=== PATIENT | male | born 1950 | race Caucasian/White ===

== ENCOUNTER 2021-06-18 09:15 | Outpatient (CLI) | payer MEDICARE, OTHER, SELFPAY ==
--- NOTE | ~2021-06-18 | XR_ITS ---
EXAMINATION: XR hip LT min 2V DATE: 06/18/2021 09:52 INDICATION: Chronic left hip pain. TECHNIQUE: 2 views of left hip were obtained. COMPARISON: None. FINDINGS: Bone alignment is normal. No fracture. There is mild left hip osteoarthritis. IMPRESSION: 1. Mild left hip osteoarthritis. Reviewed, dictated and finalized at location A.
== END 2021-06-18 09:16 | disposition home or self-care (01) ==
PROVIDERS: PCP Family Medicine; Visit Provider Nurse Practitioner Adult Health
DX: M16.12 Unilateral primary osteoarthritis, left hip (principal)
CPT/HCPCS: 73502

== ENCOUNTER 2022-02-01 10:38 | Outpatient (CLI) | payer MEDICARE, OTHER, SELFPAY ==
--- NOTE | ~2022-02-01 | XR_ITS ---
EXAMINATION: XR chest 2V DATE: 02/01/2022 11:03 INDICATION: Prior tuberculosis presenting with pneumonia with 2 weeks of cough. TECHNIQUE: PA and lateral views of the chest were obtained. COMPARISON: Chest radiograph dated 05/23/2014 FINDINGS: Small calcified pleural plaque at the lateral right apex. Chronic elevation of the left hemidiaphragm with mild streaky atelectasis/scarring the left lower lung zone. Nodular opacity projecting over the inferior margin of the anterior right fifth rib most likely representing a nipple shadow. No other a irspace opacities, pulmonary edema, pleural effusion or pneumothorax. The cardiomediastinal silhouett e is normal. Multiple old left-sided rib fractures. Chronic type V acromioclavicular joint separation . Chronic asymmetry to the sternoclavicular joints also likely related to old trauma with old fractur e deformity seen on prior CT at the [facility]. IMPRESSION: 1. Unchanged elevation of left hemidiaphragm with chronic atelectasis/scarring the left lower lung zo ne. Reviewed, dictated and finalized at location A. 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 Unchanged elevation of left hemidiaphragm with chronic atelectasis/scarring the left lower lung zone.
== END 2022-02-01 10:39 | disposition home or self-care (01) ==
PROVIDERS: PCP Family Medicine
DX: J18.9 Pneumonia, unspecified organism (principal); Z86.11 Personal history of tuberculosis; R91.8 Other nonspecific abnormal finding of lung field
CPT/HCPCS: 71046

== ENCOUNTER 2022-07-09 13:33 | Emergency (ER) | payer MEDICARE, OTHER, SELFPAY ==
--- NOTE | ~2022-07-09 | CT_ITS ---
EXAMINATION: CT brain wo con DATE: 07/09/2022 15:41 INDICATION: fall . TECHNIQUE: Computed tomography (CT) of the head was performed without intravenous contrast. The mA wa s adjusted according to patient size. Iterative reconstruction technique was employed. The dose-lengt h product was 605.33 mGy-cm. COMPARISON: None. FINDINGS: No acute intracranial hemorrhage or extra-axial fluid collection. No hydrocephalus, mass, or herniation. No acute ischemic infarct. Unremarkable dural venous sinus attenuation. No acute osseous abnormality. The aerated spaces are clear. Moderate atrophy and mild chronic white matter change. Atherosclerotic intracranial calcification. Mi nimal bilateral nasal ganglia calcification. IMPRESSION: No acute intracranial process. Reviewed, dictated and finalized at location K.
--- NOTE | ~2022-07-09 | CT_ITS ---
EXAMINATION: CT cervical spine wo con DATE: 07/09/2022 15:42 INDICATION: fall TECHNIQUE: Computed tomography (CT) of the cervical spine was performed without intravenous contrast. Automated exposure control and iterative reconstruction technique were employed. The dose-length pro duct was 235.61 mGy-cm. COMPARISON: None. FINDINGS: Vertebral Body Alignment: Intact. Mildly reversed lordosis centered at C5-6. Craniocervical and atlantoaxial alignment: Severe degenerative change. Alignment intact. Osseous structures/fracture: No evidence of a lytic or blastic process in the visualized spine. No e vidence of acute fracture. . Cervical soft tissues: The paraspinal soft tissues planes are maintained. Tracheostomy. Prior left th yroid ectomy. Degenerative changes: Degenerative changes, without severe neural foraminal or central canal narrowin g. IMPRESSION: No acute fracture or traumatic malalignment in the cervical spine. Reviewed, dictated and finalized at location K.
--- NOTE | ~2022-07-09 | XR_ITS ---
EXAM: XR shoulder LT min 2V DATE: 07/09/2022 15:44 HISTORY: Fall off ladder x today. Left shoulder pain . COMPARISON: None available. FINDINGS: Decreased mineralization. Comminuted fracture of the left humeral head, with involvement o f portions of the greater tuberosity. Significant superior displacement of the distal clavicle relati ve to the acromion and coracoid. No lytic or blastic lesion. Joint spaces are maintained. No erosion or periosteal change. Soft tissues within normal limits. IMPRESSION: Comminuted left humeral head fracture with involvement of the greater tuberosity. High-gr leanne AC separation. Reviewed, dictated and finalized at location K. IMPRESSION: Comminuted left humeral head fracture with involvement of the great er tuberosity. High-grade AC separation.
[2022-07-09 13:35] VITALS: BP 142/72; PULSE 55; RESP 18; TEMP 36.2; O2SAT 100
[2022-07-09 14:30] VITALS: BP 144/80; PULSE 68; RESP 16; O2SAT 98
--- NOTE | 2022-07-09 14:34 | ED.GENADULT ---
HPI - General Adult General Chief complaint: Fall Stated complaint: fall with left shoulder pain Time Seen by Provider: 07/09/22 14:12 History of Present Illness HPI narrative: Burke Arrington is a 72 y/o male who presents today with his . Patient reports he was on a ladder when he lost his footing and fell about 7 feet. He fell on to his left side of his body, with his left shoulder getting most of the blunt of the fall. He did hit the left side of his head with an abrasion to his left ear. He denies LOC, denies pain anywhere other then to his left shoulder. Patient did not want to come here, but encouraged him to come. Related Data Home Medications Medication Instructions Recorded Confirmed cholecalciferol (vitamin D3) 25 25 mcg PO DAILY 04/28/22 04/28/22 mcg (1,000 unit) capsule finasteride 5 mg tablet 5 mg PO 04/28/22 04/28/22 midodrine 10 mg tablet 10 mg PO TID 04/28/22 04/28/22 simvastatin 5 mg tablet 5 mg PO 04/28/22 04/28/22 Allergies Allergy/AdvReac Type Severity Reaction Status Date / Time meperidine [From Demerol] Allergy Unknown Unknown Verified 07/09/22 13:34 Review of Systems Review of Systems: CONSTITUTIONAL: Denies fever, chills, or sweats. EYES: Denies visual changes, redness, or discharge. ENT: Denies rhinorrhea, congestion, sore throat, or otalgia. CARDIOVASCULAR: Denies chest pain, palpitations, or edema. RESPIRATORY: Denies cough or dyspnea. GASTROINTESTINAL: Denies abdominal pain, nausea, vomiting, or diarrhea. GENITOURINARY: Denies dysuria or hematuria. SKIN: Denies rash or itching. MUSCULOSKELETAL: Complains of pain to the left shoulder with swelling noted. NEUROLOGIC: Denies headache, numbness, dizziness, or weakness. PSYCHIATRIC: Denies anxiety or depression. [facility] Past Medical History Medical History Arthritis Headache Hypotension Thyroid disorder Family History Family History Father Alcoholism Hypertension Heart disease Mother Alcoholism Hypertension Depression Social History Social History Smoking status: Never smoker Alcohol intake: never Substance use: never Lack of Transportation: No Lack of Food: Never True Current Housing: I Have Housing Concerned About Future Housing: No Difficulty Paying Gas/Electric Bills: No Difficulty Paying for Meds: No Currently Unemployed: No Education: High School Diploma/GED Difficulty w/ Childcare or Family Care: No Exam Narrative: GENERAL: Well-appearing, well-nourished, and in no acute distress. HEAD: Normocephalic, atraumatic. EYES: PERRLA and EOMI. ENT: Nares clear, no rhinorrhea or epistaxis. Mucous membranes moist. Oropharynx without tonsillar hypertrophy exudate or other lesions. Bilateral TMs pearly snow nonbulging NECK: Supple. No adenopathy or masses. No carotid bruits or JVD CHEST: Clear to auscultation. No respiratory distress. No wheezes rales or rhonchi HEART: Regular rate and rhythm. No murmur heard. Normal peripheral pulses. ABDOMEN: Soft, nontender, nondistended, normal active bowel sounds. EXTREMITIES: Moderate swelling noted to left shoulder, distal pulses present ecchymosis noted. SKIN: Warm, dry, no rash. NEURO: No focal deficits. Alert and oriented x3. PSYCH: Normal mood and affect. Course Vital Signs Vital signs: Vital Signs Temperature 36.2 C L 07/09/22 13:35 Pulse Rate 55 L 07/09/22 13:35 Respiratory Rate 18 07/09/22 13:35 Blood Pressure 142/72 H 07/09/22 13:35 Pulse Oximetry 100 07/09/22 13:35 Oxygen Delivery Room Air 07/09/22 13:35 Temperature 36.7 C 07/09/22 17:25 Pulse Rate 68 07/09/22 17:25 Respiratory Rate 16 07/09/22 17:25 Blood Pressure 144/78 H 07/09/22 17:25 Pulse Oximetry 98 07/09/22 17:25 Oxygen Delivery Room Air 07/09/22 13:35 Med
[2022-07-09] MEDS: CYCLOBENZAPRINE HCL 10 MG TABLET PO (14:46)
[2022-07-09] MEDS: KETOROLAC 30 MG/ML VIAL (*BKC) IV PUSH (14:47)
--- NOTE | 2022-07-09 14:47 | PC.NURSE ---
pt refused SLN med given IM, ERP notified
--- NOTE | 2022-07-09 14:50 | PC.NURSE ---
when taking cyclobenzaprine 1st dose dropped on floor, wasted in pyxis and new dose removed
[2022-07-09 15:30] VITALS: BP 142/78; PULSE 70; RESP 16; O2SAT 99
--- NOTE | 2022-07-09 16:21 | PC.NURSE ---
patient refusing lab draw at this time. provider and primary nurse aware
[2022-07-09 16:30] VITALS: BP 142/90; PULSE 72; RESP 16; O2SAT 99
[2022-07-09 17:25] VITALS: BP 144/78; PULSE 68; RESP 16; TEMP 36.7; O2SAT 98
== END 2022-07-09 17:54 | disposition home or self-care (01) ==
PROVIDERS: Emergency Provider Nurse Practitioner Family; PCP Family Medicine
DX: S42.295A Other nondisplaced fracture of upper end of left humerus, initial encounter for closed fracture (principal); S42.255A Nondisplaced fracture of greater tuberosity of left humerus, initial encounter for closed fracture; E07.9 Disorder of thyroid, unspecified; M19.90 Unspecified osteoarthritis, unspecified site; W11.XXXA Fall on and from ladder, initial encounter
CPT/HCPCS: 70450; 72125; 73030; 96374; 99284; A9270; J1885

== ENCOUNTER 2023-09-04 13:12 | Outpatient (CLI) | payer MEDICARE, OTHER, SELFPAY ==
--- NOTE | ~2023-09-04 | XR_ITS ---
Clinical Indication: Shortness of breath PA and lateral views of the chest: Comparison: 02/01/2022 Findings: The lungs are clear, without evidence of focal consolidation or pleural effusion. Bibasilar nipple shadows noted. Cardiomediastinal silhouette is within normal limits. Bones and soft tissues a re unremarkable. Impression: Normal chest. Reviewed, dictated and finalized at location . Impression: Normal chest.
== END 2023-09-04 13:13 | disposition home or self-care (01) ==
PROVIDERS: PCP Family Medicine; Visit Provider Registered Nurse
DX: R06.02 Shortness of breath (principal); Z86.11 Personal history of tuberculosis
CPT/HCPCS: 71046

== ENCOUNTER 2023-10-27 07:12 | Outpatient (CLI) | payer MEDICARE, OTHER, SELFPAY ==
--- NOTE | ~2023-10-27 | NM_ITS ---
EXAMINATION: NM chantel stress w perfusion DATE: 10/27/2023 12:31 INDICATION: Other forms of dyspnea TECHNIQUE: Rest images were obtained following intravenous administration of 10.2 mCi Tc99m tetrofosm in (Myoview). The patient was infused intravenously with Lexiscan (Regadenoson). Then, 32 mCi Tc99m t etrofosmin (Myoview) was administered intravenously, and stress images were obtained in supine positi on. Additional repeat post stress images were obtained in the prone position. Data was reconstructed into short axis and horizontal and vertical long axis SPECT images. Gated SPECT images were also obta ined. COMPARISON: None. FINDINGS: There is likely attenuation artifact along the lateral wall which is significantly more pro minent on the rest than the stress images which normalizes on the post stress images obtained in the prone position. There is no definite reversible or fixed perfusion abnormality to suggest ischemia or infarction. There is normal left ventricular chamber size, wall motion and ejection fraction. Left ventricular ejection fraction measures 57%. IMPRESSION: 1. Normal myocardial perfusion at rest and during stress. 2. Left ventricular ejection fraction measuring 57%. Reviewed, dictated and finalized at location A.
--- NOTE | 2023-10-27 07:31 | ECHO_ITS ---
Patient Info Name: Burke Arrington Age: 73 years : 1950 Gender: Male Ht: 67 in Wt: 146 lbs BSA: 1.77 m2 HR: 71 bpm BP: 139 / 83 mmHg Technical Quality: Good Exam Date: 10/27/2023 8:04 AM Exam Location: Echo Lab Patient Status: Outpatient Admit Date: 10/27/2023 Staff Ordering Physician: Wing Hancock DO Grinder Set Up Operator Universal: Ambar Laureano RDCS Attending Provider: Wing Hancock DO Referring Physician: Santi WELCH; Exam Type: CA echo doppler color flow Study Info Indications R06.09 - Other forms of dyspnea Complete two-dimensional, color flow and Doppler transthoracic echocardiogram is performed. Strain analysis performed. Summary 1. Complete two-dimensional, color flow and Doppler transthoracic echocardiogram is performed. 2. Left ventricular chamber dimension is normal. 3. Left ventricular systolic function is normal, estimated at 60-65%. 4. There is severe asymmetric septal increased left ventricular wall thickness. 5. The left ventricular diastolic function is abnormal. 6. E/e' 11 is mildly elevated. 7. Global longitudinal strain is abnormal at -15.6%. 8. There is moderate aortic valve sclerosis. 9. There is mild aortic valve regurgitation. 10. Mildly calcified chordae tendinae of anterior mitral leaflet. 11. There is mild mitral valve regurgitation. 12. There is trace tricuspid valve regurgitation. 13. No pulmonary hypertension, estimated pulmonary arterial systolic pressure is 27 mmHg. Left Ventricle E/e' 11 is mildly elevated. Global longitudinal strain is abnormal at -15.6%. Left ventricular chamber dimension is normal. Left ventricular systolic function is normal, estimated at 60-65%. There is severe asymmetric septal increased left ventricular wall thickness. The left ventricular diastolic function is abnormal. Right Ventricle Right ventricular systolic function is normal and with normal TAPSE 2.7 cm. Right ventricular chamber dimension is normal. Left Atria Left atrial chamber dimension is normal. Right Atria Right atrial chamber dimension is normal. Aortic Valve The aortic valve is trileaflet. There is moderate aortic valve sclerosis. There is no aortic valve stenosis. There is mild aortic valve regurgitation. Pulmonic Valve There is no pulmonic regurgitation. Mitral Valve Mildly calcified chordae tendinae of anterior mitral leaflet. There is no mitral valve stenosis. There is mild mitral valve regurgitation. Tricuspid Valve There is trace tricuspid valve regurgitation. No pulmonary hypertension, estimated pulmonary arterial systolic pressure is 27 mmHg. Pericardium/Pleural There is no pericardial effusion. Inferior Vena Cava Normal inferior vena cava with >50% collapse upon inspiration consistent with normal right atrial pressure, 5 mmHg. Aorta The aortic root size at the sinus of Valsalva is normal. Left Ventricular Outflow Tract Name Value Normal LVOT 2D LVOT Diameter 2.1 cm LVOT Doppler LVOT Peak Gradient 6 mmHg LVOT Mean Gradient 3 mmHg LVOT VTI 32 cm LVOT VTI/AV VTI Ratio 0.7 LVOT Stroke Volume 109 ml
--- NOTE | 2023-10-27 07:39 | EST_ITS ---
Patient Info Name: Burke Arrington Age: 73 years : 1950 Gender: Male Ht: 67 in Wt: 145 lbs BSA: 1.77 m2 Exam Date: 10/27/2023 9:47 AM Exam Location: Echo Lab Patient Status: Outpatient Admit Date: 10/27/2023 Staff Ordering Physician: Wing Hancock DO Attending Provider: Wing Hancock DO Exercise Technologist: Ct Del Castillo RDCS Exercise Physician: Wing Hancock DO Exam Type: CA stress chantel w NM Study Info Indications R06.00 - Dyspnea, unspecified A regadenoson stress test was performed. Summary 1. 1. Negative lexiscan stress test for ischemic ST changes by ECG criteria. 2. 2. Baseline hypertension. 3. 3. Nuclear scan to follow and will be reported separately. Please correlate with it. 4. 4. Patient informed of the above results. Protocol: Lexiscan Stress ECG Details Stage: REST Duration (min): 2 min : 11 sec HR (bpm): 53 SBP (mmHg): 154 DBP (mmHg): 81 Stage: REST Duration (min): 6 min : 19 sec HR (bpm): 52 SBP (mmHg): 154 DBP (mmHg): 81 Stage: STAGE 1 Duration (min): 1 min : 0 sec HR (bpm): 79 SBP (mmHg): 122 DBP (mmHg): 69 Stage: RECOVERY Duration (min): 1 min : 0 sec HR (bpm): 78 SBP (mmHg): 122 DBP (mmHg): 69 Stage: RECOVERY Duration (min): 2 min : 0 sec HR (bpm): 72 SBP (mmHg): 122 DBP (mmHg): 69 Stage: RECOVERY Duration (min): 3 min : 0 sec HR (bpm): 70 SBP (mmHg): 123 DBP (mmHg): 75 Stage: RECOVERY Duration (min): 4 min : 0 sec HR (bpm): 66 SBP (mmHg): 123 DBP (mmHg): 75 Stage: RECOVERY Duration (min): 4 min : 7 sec HR (bpm): 67 SBP (mmHg): 123 DBP (mmHg): 75 Rest HR: 52 bpm Peak HR: 88 bpm Rest Sys BP: 154 mmHg Peak Sys BP: 123 mmHg Max Pred HR: 148 bpm % Max Pred HR: 59 % Target HR: 126 bpm Max RPP: 10,824 bpm*mmHg Termination Reason: Completed protocol Cardiac Symptoms: Shortness of breath Total Time: 1 min : 0 sec Rest Crowe BP: 81 mmHg Peak Crowe BP: 75 mmHg Total Dose: 0.4 mg Resting ECG Sinus bradycardia, inferior infarct, age indeterminate, ST-T wave abnormality in high lateral leads- consider ischemia. Stress ECG No ST changes. Arrhythmias None. Report Signatures
== END 2023-10-27 07:13 | disposition home or self-care (01) ==
PROVIDERS: PCP Family Medicine; Visit Provider Internal Medicine Cardiovascular Disease
DX: R06.09 Other forms of dyspnea (principal); I34.0 Nonrheumatic mitral (valve) insufficiency
CPT/HCPCS: 78452; 93017; 93306; A9502; J2785